=== PATIENT | female | born 1990 | race Two or more races ===

== ENCOUNTER 2025-09-11 07:32 | Emergency (ER) | payer SELFPAY ==
[2025-09-11 07:34] VITALS: BP 125/76; PULSE 88; RESP 15; TEMP 36.2; O2SAT 99; BMI 36.5
--- NOTE | 2025-09-11 07:56 | MHC.EDTECH ---
LAbs drawn/sent. pt attempting to give a urien sample.
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
[2025-09-11 07:59] LABS: MANUAL DIFF FLAG NO
[2025-09-11 08:04] LABS: Hematocrit 40.8 % (37.0-47.0); Hemoglobin 13.0 g/dl (12.0-16.0); Imm Gran Abs Auto 0.04 X10*3/uL (0.00-0.03); Imm Gran Pct Auto 0.4 % (0.0-0.4); Lymphocytes Absolute Auto 2.3 X10*3/uL (1.2-4.9); Mean Corpuscular HGB Conc 31.9 g/dl (31.0-35.0); Mean Corpuscular Hemoglobin 28.8 pg (27.0-33.0); Mean Corpuscular Volume 90.5 fL (80.0-98.0); NRBC Abs Auto 0.000 X10*3/uL (0.0-0.012); NRBC Pct Auto 0.0 /100WBC (0.0-0.2); Platelet Count 464 X10*3/uL (160-400); Red Blood Count 4.51 X10*6/uL (4.20-5.50); White Blood Count 10.5 X10*3/uL (4.8-10.8)
[2025-09-11 08:14] LABS: Appearance Urine Clear; Glucose Urine UA Negative (Negative); PH 6.0 (5.0-9.0); Specific Gravity - Urine 1.020 (1.005-1.025); UMIC TRIGGER UACC YES
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
[2025-09-11 08:31] LABS: Alanine Aminotransferase 48 U/L (0-31); Albumin Level 4.5 g/dL (3.5-5.0); Alkaline Phosphatase 93 U/L (39-117); Anion Gap 9 (12-20); Aspartate Amino Transferase 31 U/L (5-31); Blood Urea Nitrogen 11 mg/dL (9-16); Calcium 8.9 mg/dL (8.4-10.2); Carbon Dioxide 24 mmol/L (22-29); Chloride 111 mmol/L (96-108); Creatinine Clr Calc Pharmacy 129.3; Estimated Glomerular Filt Rate > 60; Magnesium 2.2 mg/dL (1.6-2.6); Potassium 4.2 mmol/L (3.3-5.1); Sodium 140 mmol/L (135-145); Total Protein 7.4 g/dL (6.5-8.0)
[2025-09-11 09:51] VITALS: BP 98/63; PULSE 75; RESP 18; TEMP 36.9; O2SAT 100
[2025-09-11 09:57] VITALS: BP 98/63; PULSE 75; RESP 18; TEMP 36.9; O2SAT 100
== END 2025-09-11 09:57 | disposition home or self-care (01) ==
PROVIDERS: Emergency Provider Emergency Medicine
DX: K64.4 Residual hemorrhoidal skin tags (principal); K92.1 Melena
CPT/HCPCS: 36415; 80053; 81001; 82248; 83735; 84702; 85025; 99283; 99284